=== PATIENT | male | born 1955 | race Caucasian/White ===

== ENCOUNTER → 2020-03-25 | Outpatient (CLI) | payer BC ==
[~2020-03-25] MED LIST: COVID-19 VACCINE (PFIZER)/PF 30 MCG/0.3 ML VIAL IM ONE; EPINEPHRINE INJ/PF 1 MG/1 ML AMPULE IM PRN
--- OUTSIDE RECORDS SUMMARY | 2020-03-28 10:32 | XMS REPORT ---
:1955 [facility] [address] [place] [address] Care Team Providers Name Role Phone PCP UNKNOWN, PATIENT Primary Care Physician Unavailable Valdemar Koch MD Attending Clinician Unavailable Ruth DIAZ Attending Clinician Unavailable Allergies, Adverse Reactions, Alerts Allergy Name Allergy Status Severity Reaction(s) Onset Inactive Treat ing Comments Type Date Date Clinician Acetaminophe Propensity Active Patient n to adverse 09-02 unsur e of reactions 00:00: reacti on 00 Tylenol TABS Tylenol Active Unrecalled TABS Reaction Medications Ordered Filled Start Stop Current Ordering Indication Dosage Frequency Signature Comments Components Medication Medication Date Date Medication? Clinician (SIG) Name Name Meloxicam Yes Peg Meloxicam 7.5 MG Oral -04 Meghan PA-C 7.5 MG Tablet 00:00: Oral 00 Tablet Take 1 tablet by mouth every day with food Quantity: 30 Refills: 5 Peg Christianson PA-C Start : 06-Mar-2020 Active Cyclobenzap Yes Peg Q0.3333D Cyclob leann rine HCl - 1- Meghan CRANE-C win HCl 10 MG Oral 00:00: - 10 MG Tablet 00 Oral Tablet TAKE 1/2 TO 1 TABLET 3 TIMES DAILY NEEDED. Quantity: 30 Refills: 2 Peg Christianson PA-C Start : 06-Mar-2020 Active predniSONE Yes Peg predniSONE 10 MG Oral -04 Meghan PA-C 10 MG Oral Tablet 00:00: Tablet 4 00 TABLETS DAILY FOR THREE DAYS, THEN 3 TABLETS DAILY FOR 3 DAYS, THEN 2 TABLETS DAILY FOR THREE DAYS, THEN 1 TABLET DAILY FOR THREE DAYS. Quantity: 30 Refills: 0 Peg Christianson PA-C Start : 06-Mar-2020 Active tadalafiL 2019-03 Yes benign 5mg Take 1 Take 1 (CIALIS) 5 2-14 prostatic tablet (5 t ablet (5 MG tablet 00:00: hyperplasia mg total) mg total) 00 with lower by mouth by jose th urinary daily. daily. tract sx Propafenone 2019-03 Yes Eloy Aldrich Propafenon HCl - 150 0-27 Zee DIAZ e HCl - MG Oral 12:47: 150 MG Tablet 13 Oral Tablet TAKE 1 TABLET BY MOUTH TWICE DAILY Quantity: 180 Refills: 1 Eloy Koch MD Start : 0Active tadalafiL 2019-03 2020- No benign 5mg Take 1 Take 1 (CIALIS) 5 0-12 12-14 prostatic tablet (5 t ablet (5 MG tablet 00:00: 00:00 hyperplasia mg total) mg total) 00 :00 with lower by mouth by jose th urinary daily. daily. tract sx Propafenone No Eloy Aldrich Propafenon HCl - 150 7- Zee DIAZ e HCl - MG Oral 16:27: 150 MG Tablet 43 Oral Tablet TAKE ONE TABLET BY MOUTH TWICE DAILY Quantity: 180 Refills: 0 Eloy Koch MD Start : 0Active Atenolol 25 Yes Eloy Aldrich Atenolol MG Oral - Zee DIAZ 25 MG Oral Tablet 16:27: Tablet 30 TAKE ONE TABLET BY MOUTH EVERY DAY Quantity: 90 Refills: 3 Eloy Koch MD Start : 0Active Triamcinolo Yes Eloy Aldrich Triamcinol ne 08-26 Zee DIAZ one Acetonide 00:00: Acetonide 0.5 % 00 0.5 % External External Cream Cream Apply to rash twice daily as directed (do not apply to face) Quantity: 1 Refills: 1 Eloy Koch MD Start : 0Active 15 GM Tube tadalafiL 0 2020- No benign 5mg Take 1 Take 1 (CIALIS) 5 5-13 10-12 prostatic tablet (5 t ablet (5 MG tablet 00:00: 00:00 hyperplasia mg total) mg total) 00 :00 with lower by mouth by jose th urinary daily. daily. tract sx Ondansetron Yes Alisia 1 Q8H Ondansetro 4 MG Oral 3-12 Loveless n 4 MG Tablet 00:00: PA Oral Disintegrat 00 Tablet ing Disintegra ting TAKE 1 TABLET Every 8 hours PRN nausea/ vomiting Quantity: 12 Refills: 0 Loveless Alisia CRANE Start : 0Active Cyanocobala No Eloy B 1 Cyanocobal min 1000 - Zee DIAZ brewer 1000 MCG/ML 00:00: MCG/ML Injection 00 Injection Solution Solution INJECT 1 ML INTRAMUSCU LARLY ONCE A MONTH Refills: 0 Eloy Koch MD Start : 0Admin Requested Cyanocobala 2018-03 No Eloy B 1 Cyanocobal min 1000 - Zee DIAZ brewer 1000 MCG/ML 00:00: MCG/ML Injection 00 Injection Solution Solution INJECT 1 ML INTRAMUSCU LARLY ONCE A MONTH Refills: 0 Eloy Koch MD Start : 9Admin Requested Propafenone No Eloy B Propafenon HCl - 150 09-29 Zee DIAZ e HCl - MG Oral 10:50: 150 MG Tablet 45 Oral Tablet TAKE ONE TABLET BY MOUTH TWICE DAILY Quantity: 180 Refills: 3 Eloy Koch MD B Start : 9Active Atenolol 25 No Eloy B Atenolol MG Oral 09-29 Zee DIAZ 25 MG Oral Tablet 10:50: Tablet 38 TAKE ONE TABLET BY MOUTH EVERY DAY Quantity: 90 Refills: 3 Eloy Koch MD B Start : 9Active aspirin Yes 81mg Take 81 mg Take 8 1 (ECOTRIN) 7-09 by mouth mg by 81 MG 14:16: daily. mouth tablet 43 daily. propafenone Yes 150mg Take 150 Take 150 (RYTHMOL) 7-09 mg by mg by 150 MG 14:16: mouth Two mouth Tw o tablet 43 (2) times (2) times a day. a day. atenolol Yes 25mg Take 25 mg Take 25 (TENORMIN) 7-09 by mouth mg by 25 MG 14:16: daily. mouth tablet 43 daily. multivit-ir Yes 1{tbl} Chew 1 Chew 1 on-min-foli 09-08 tablet tablet c acid 14:16: daily. daily. (MULTIVITAM 43 IN-IRON-MIN ERALS-FOLIC ACID) 3,500-18-0. 4 unit-mg-mg Chew tadalafil 2019- No benign 5mg Take 1 Take 1 (CIALIS) 5 09-08 05-13 prostatic tablet (5 t ablet (5 MG tablet 00:00: 00:00 hyperplasia mg total) mg total) 00 :00 with lower by mouth by jose th urinary daily. daily. tract sx tadalafil 2018- No benign 5mg Take 1 Take 1 (CIALIS) 5 09-08 prostatic tablet (5 t ablet (5 MG tablet 00:00: 00:00 hyperplasia mg total) mg total) 00 :00 with lower by mouth by jose urinary daily. daily. tract sx tadalafil 2018- No benign Take daily Reed e (CIALIS) 5 04-23 prostatic for bph melany ly for MG tablet 00:00: 00:00 hyperplasia bph 00 :00 with lower urinary tract sx tadalafil 2018- No enlarged Take daily T rc (CIALIS) 5 04-23 prostate for bph merissa y for MG tablet 00:00: 00:00 with bph 00 :00 urination problem multivit-ir Yes 1{tbl} Chew 1 Chew 1 on-min-foli 09-02 tablet tablet c acid 16:06: daily. daily. (MULTIVITAM 15 IN-IRON-MIN ERALS-FOLIC ACID) 3,500-18-0. 4 unit-mg-mg Chew tadalafil 2018- No benign 5mg Take 1 Take 1 (CIALIS) 5 09-02 07-09 prostatic tablet (5 t ablet (5 MG tablet 00:00: 00:00 hyperplasia mg total) mg total) 00 :00 with lower by mouth by jose th urinary daily. daily. tract sx Cialis 5 MG Yes Cialis 5 Oral Tablet 4-19 MG Oral 00:00: Tablet 00 Quantity: 90 Refills: 0 Start : 4Active Aspirin 81 2010- Yes Eloy B 1 QD Aspirin 81 MG TABS 8-24 Zee MD MG TABS 00:00: TAKE 1 00 TABLET DAILY WITH FOOD Quantity: 90 Refills: 3 Eloy Koch MD Start : 1Active Vitamins Yes Eloy Aldrich 1 QD Vitamins A-D-E/Selen 10-24 Zee Pascual-D-E/Pearl e ium Oral 00:00: nium Oral Tablet 00 Tablet TAKE 1 TABLET DAILY. 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 I refilled his Cialis prescrip t ion. Patient is doing really well. Se e the patient back in a year. He gets his PSAs wit h his primary. Erectile Erectile [id number] Inactiv 2017-09-[address] dysfunction dysfunction e 09-02 16:15:38 Assessmen 00:00: t & Plan : 00 Patient would like to go back to name brand once daily Cialis which I wrote for. He has no real active urologic issues. See him back in a year. He gets his PSAs wit h his primary Erectile Erectile [id number] Active 2017-09-[address] dysfunction dysfunction 09-02 16:15:38 Assessmen 00:00: t & Plan : 00 Patient would like to go back to name brand once daily Cialis which I wrote for. He has no real active urologic issues. See him back in a year. He gets his PSAs wit h his primary Erectile Erectile Condition Active 2017-09-[address] dysfunction dysfunction 09-02 16:15:38 Assessmen 00:00: t & Plan : 00 Patient is here for his annual checkup. The patient had his PSA recently that he was told was good . Apparent l y he brought a copy of a PSA. It' s currentl y not in the system. I wrote a prescrip t ion for Cialis 5 mg daily . See the patient back in a year. He he'll ge t his PSA with his primary. Obstructive Obstructive Condition Active 2017-09-02 uropathy uropathy 09-02 16:15:43 00:00: 00 Nocturia Nocturia Condition Active 2017-09-0209-02 16:15:46 00:00: 00 Influenza Influenza Problem Active vaccine vaccine administere administere d d History of History of Problem Resolve Benign Benign d colon polyp colon polyp Varicose Varicose Problem Active veins veins Fatigue Fatigue Problem Active High risk High risk Problem Active medication medication use use Pain in Pain in Problem Active joint of joint of right right shoulder shoulder Palpitation Palpitation Problem Active s s Umbilical Umbilical Problem Active hernia hernia Musculoskel Musculoskel Problem Active etal arm etal arm pain, right pain, right Chronic Chronic Problem Active pain of pain of left ankle left ankle Numbness Numbness Problem Active Arthralgia Arthralgia Problem Active of multiple of multiple sites sites Elevated Elevated Problem Active alkaline alkaline phosphatase phosphatase level level Elevated Elevated Problem Active AST (SGOT) AST (SGOT) Bilateral Bilateral Problem Active impacted impacted cerumen cerumen Pain in Pain in Problem Active both lower both lower extremities extremities Left leg Left leg Problem Active pain pain Intermitten Intermitten Problem Active t t claudicatio claudicatio n n Vitamin B12 Vitamin B12 Problem Active deficiency deficiency Flu-like Flu-like Problem Active symptoms symptoms Nausea with Nausea with Problem Active vomiting vomiting Right leg Right leg Problem Active pain pain Right Right Problem Active inguinal inguinal pain pain Impaired Impaired Problem Active glucose glucose regulation regulation Hyperlipopr Hyperlipopr Problem Active oteinemia oteinemia Paroxysmal Paroxysmal Problem Active atrial atrial fibrillatio fibrillatio n n Pernicious Pernicious Problem Active anemia anemia Obstructive Obstructive Problem Active sleep apnea sleep apnea Hypoglycemi Hypoglycemi Problem Active a a Fatty liver Fatty liver Problem Active disease, disease, nonalcoholi nonalcoholi c c Screening Screening Problem Active PSA PSA (prostate (prostate specific specific antigen) antigen) Low back Low back Problem Active pain with pain with left-sided left-sided sciatica sciatica Dermatitis Dermatitis Problem Active Left knee Left knee Problem Active pain pain Procedures Procedure Date / Time Performed Performing Clinician Devic e Lipid Panel 2020-03-03 00:00:00 TSH 2020-03-03 00:00:00 CMP(Complete Metabolic Panel) 2020-03-03 00:00:00 HGBA1C 2020-03-03 00:00:00 Urinalysis 2020-03-03 00:00:00 CBC 2020-03-03 00:00:00 OFFICE/OUTPATIENT VISIT, EST 2019-12-03 08:40:00 History of Appendectomy Results Test Description Test Time Test Comments Text Results Atomic Results Result Comments CBC 2020-03-10 09:21:00 Test Item Value Reference Range Comments White Blood Cell (test code = White Blood Cell) 7.4 K/uL 3.5-11.1 Red Blood Cell (test code = Red Blood Cell) 4.87 {M/uL} 4.27 -5.49 Hemoglobin (test code = Hemoglobin) 13.7 g/dL 12.9-16.1 Hematocrit (test code = Hematocrit) 42 % 38-47 Mean Corpuscular Volume (test code = Mean Corpuscular Volume) 86 .4 fL 79.0-95.0 Mean Corpuscular Hemoglobin (test code = Mean Corpuscular 28.1 p g/mL 27.0-33.0 Hemoglobin) Mean Corpuscular Hemoglobin Concentration (test code = Mean 32.5 g/dL 33.5-35.5 Corpuscular Hemoglobin Concentration) Red Cell Distribution Width (test code = Red Cell 13.1 % 12.0-15.0 Distribution Width) Platelet (test code = Platelet) 230 K/uL 130-353 Mean Platelet Volume (test code = Mean Platelet Volume) 9.9 fL 7.5-10.7 Neutrophil Count, absolute (test code = Neutrophil Count, 4.2 K/ uL 1.9-7.2 absolute) Neutrophil Count Percentage (test code = Neutrophil Count 57.6 % 43.0-72.0 Percentage) Lymphocyte Count, absolute (test code = Lymphocyte Count, 2.1 K/ uL 1.1-2.7 absolute) Lymphocyte Count Percentage (test code = Lymphocyte Count 28.2 % 17.0-44.0 Percentage) Monocyte Count, absolute (test code = Monocyte Count, 0.9 K/uL 0.3-0.8 absolute) Monocyte Count Percentage (test code = Monocyte Count 12.8 % 4.5-12.4 Percentage) Eosinophil Count, absolute (test code = Eosinophil Count, 0.1 K/ uL 0.0-0.5 absolute) Eosinophil Count Percentage (test code = Eosinophil Count 0.7 % 0.7-7.8 Percentage) Basophil Count, absolute (test code = Basophil Count, 0.0 K/uL 0.0-0.1 absolute) Basophil Count Percentage (test code = Basophil Count 0.4 % 0.2-1.1 Percentage) Nucleated Red Blood Cell, absolute (test code = Nucleated Re d 0.00 K/uL 0.00-0.00 Blood Cell, absolute) Nucleated Red Blood Cell, percentage (test code = Nucleated 0.00 % 0.00-0.00 Red Blood Cell, percentage) [id number] 09:21:00 Test Item Value Reference Range Comments Urine Color (test code = Urine Color) YELLOW Yellow Urine Clarity (test code = Urine Clarity) CLEAR Clear Urine Glucose (test code = Urine Glucose) NEGATIVE Negati ve Urine Ketones (test code = Urine Ketones) NEGATIVE Negati ve Urine Bilirubin (test code = Urine Bilirubin) NEGATIVE Ne gative Urine Specific [place] (test code = Urine Specific 1.020 1.010-1.030 [place]) Urine Blood (test code = Urine Blood) NEGATIVE Negative Urine pH (test code = Urine pH) 7.0 5.0-8.0 Urine Protein (test code = Urine Protein) NEGATIVE Negati ve Urine Urobilinogen (test code = Urine 0.2 Eu/dl 0.2 Urobilinogen) Urine Nitrites (test code = Urine Nitrites) NEGATIVE Nega tive Urine Leukocytes (test code = Urine Leukocytes) NEGATIVE Negative Hemoglobin [id number] 09:21:00 Test Item Value Reference Range Comments Hemoglobin A1C (test code = 4548-4) 5.6 % 4.3-6.2 Lipid [id number] 09:21:00 Test Item Value Reference Range Comments Chol/HDL Ratio (test code = 2089-1) 4.0 {ratio} 0.0-6.0 High Density Lipoprotein Cholesterol (test code 54 mg/dL 40-110 = High Density Lipoprotein Cholesterol) Low Density Lipoprotein, calculated (test code = 131 mg/dL 1-130 Low Density Lipoprotein, calculated) Thyroid Stimulating [id number] 09:21:00 Test Item Value Reference Range Comments Thyroid Stimulating Hormone (test code = 2.00 {mIU/mL} 0.46-4. 68 Thyroid Stimulating Hormone) CMP(Complete Metabolic Panel)2020-03-10 09:21:00 Test Item Value Reference Range Comments Glucose (test code = Glucose) 91 mg/dL 74-106 Sodium (test code = Sodium) 141 mmol/L 135-145 Potassium (test code = Potassium) 4.6 mmol/L 3.5-5.3 Chloride (test code = Chloride) 101 mmol/L 98-107 CO2 (test code = CO2) 32 mmol/L 22-30 Creatinine, serum (test code = Creatinine, serum) 0.80 mg/dL 0.10-1.25 Glomerular Filtration Rate (test code = >60 >60 Glomerular Filtration Rate) Glomerular Filtration Rate AA (test code = >60 >60 Glomerular Filtration Rate AA) Blood Urea Nitrogen (test code = Blood Urea 18 mg/dL 9-20 Nitrogen) Calcium (test code = Calcium) 9.8 mg/dL 8.4-10.5 Phosphorus (test code = Phosphorus) 4.1 mg/dL 2.5-4.5 Total Protein (test code = Total Protein) 7.6 g/dL 6.3-8. 2 Albumin (test code = 24481-8) 4.5 g/dL 3.5-5.0 Total Bilirubin (test code = Total Bilirubin) 0.4 mg/dL 0. 2-1.3 Bilirubin, unconj (test code = Bilirubin, unconj) 0.3 mg/dL 0.0-1.1 Bilirubin, Direct (test code = Bilirubin, Direct) 0.1 mg/dL 0.0-0.4 Alkaline Phosphatase (test code = Alkaline 56 U/L 20-15 0 Phosphatase) Alanine Transaminase (test code = Alanine 41 U/L 0-50 Transaminase) Aspartate Aminotransferase (test code = Aspartate 26 U/L 3-36 Aminotransferase) [id number] 10:40:00 Test Item Value Reference Range Comments White Blood Cell (test code = White Blood Cell) 3.8 K/uL 3.5-11.1 Red Blood Cell (test code = Red Blood Cell) 4.70 {M/uL} 4.27 -5.49 Hemoglobin (test code = Hemoglobin) 13.1 g/dL 12.9-16.1 Hematocrit (test code = Hematocrit) 40 % 38-47 Mean Corpuscular Volume (test code = Mean 85.7 fL 79.0-9 5.0 Corpuscular Volume) Mean Corpuscular Hemoglobin (test code = Mean 27.9 pg/mL 27 .0-33.0 Corpuscular Hemoglobin) Mean Corpuscular Hemoglobin Concentration (test 32.5 g/dL 33.5-35.5 code = Mean Corpuscular Hemoglobin Concentration) Red Cell Distribution Width (test code = Red 12.9 % 12. 0-15.0 Cell Distribution Width) Platelet (test code = Platelet) 174 K/uL 130-353 Mean Platelet Volume (test code = Mean Platelet 10.1 fL 7.5-10.7 Volume) Neutrophil Count, absolute (test code = 1.9 K/uL 1.9-7.2 Neutrophil Count, absolute) Neutrophil Count Percentage (test code = 49.6 % 43.0-72 .0 Neutrophil Count Percentage) Lymphocyte Count, absolute (test code = 1.3 K/uL 1.1-2.7 Lymphocyte Count, absolute) Lymphocyte Count Percentage (test code = 34.5 % 17.0-44 .0 Lymphocyte Count Percentage) Monocyte Count, absolute (test code = Monocyte 0.4 K/uL 0 .3-0.8 Count, absolute) Monocyte Count Percentage (test code = Monocyte 11.1 % 4.5-12.4 Count Percentage) Eosinophil Count, absolute (test code = 0.1 K/uL 0.0-0.5 Eosinophil Count, absolute) Eosinophil Count Percentage (test code = 3.4 % 0.7-7.8 Eosinophil Count Percentage) Basophil Count, absolute (test code = Basophil 0.0 K/uL 0 .0-0.1 Count, absolute) Basophil Count Percentage (test code = Basophil 1.1 % 0.2-1.1 Count Percentage) Nucleated Red Blood Cell, absolute (test code = 0.00 K/uL 0.00-0.00 Nucleated Red Blood Cell, absolute) Nucleated Red Blood Cell, percentage (test code 0.00 % 0.00-0.00 = Nucleated Red Blood Cell, percentage) [id number] 10:40:00 Test Item Value Reference Range Comments Urine Color (test code = Urine Color) LT. YELLOW Yellow Urine Clarity (test code = Urine Clarity) CLEAR Clear Urine Glucose (test code = Urine Glucose) NEGATIVE Negati ve Urine Ketones (test code = Urine Ketones) NEGATIVE Negati ve Urine Bilirubin (test code = Urine Bilirubin) NEGATIVE Ne gative Urine Specific [place] (test code = Urine 1.010 1.010- 1.030 Specific [place]) Urine Blood (test code = Urine Blood) NEGATIVE Negative Urine pH (test code = Urine pH) 8.0 5.0-8.0 Urine Protein (test code = Urine Protein) NEGATIVE Negati ve Urine Urobilinogen (test code = Urine 0.2 Eu/dl 0.2 Urobilinogen) Urine Nitrites (test code = Urine Nitrites) NEGATIVE Nega tive Urine Leukocytes (test code = Urine Leukocytes) NEGATIVE Negative Hemoglobin [id number] 10:40:00 Test Item Value Reference Range Comments Hemoglobin A1C (test code = 4548-4) 5.6 % 4.3-6.2 Lipid [id number] 10:40:00 Test Item Value Reference Range Comments Chol/HDL Ratio (test code = 2089-1) 4.5 {ratio} 0.0-6.0 High Density Lipoprotein Cholesterol (test code 42 mg/dL 40-110 = High Density Lipoprotein Cholesterol) Low Density Lipoprotein, calculated (test code = 126 mg/dL 1-130 Low Density Lipoprotein, calculated) CMP(Complete Metabolic Panel)2019-08-27 10:40:00 Test Item Value Reference Range Comments Glucose (test code = Glucose) 108 mg/dL 74-106 Sodium (test code = Sodium) 138 mmol/L 135-145 Potassium (test code = Potassium) 4.5 mmol/L 3.5-5.3 Chloride (test code = Chloride) 102 mmol/L 98-107 CO2 (test code = CO2) 28 mmol/L 22-30 Creatinine, serum (test code = Creatinine, serum) 0.70 mg/dL 0.10-1.25 Glomerular Filtration Rate (test code = >60 >60 Glomerular Filtration Rate) Glomerular Filtration Rate AA (test code = >60 >60 Glomerular Filtration Rate AA) Blood Urea Nitrogen (test code = Blood Urea 14 mg/dL 9-20 Nitrogen) Calcium (test code = Calcium) 9.5 mg/dL 8.4-10.5 Phosphorus (test code = Phosphorus) 3.8 mg/dL 2.5-4.5 Total Protein (test code = Total Protein) 7.1 g/dL 6.3-8. 2 Albumin (test code = 71728-7) 4.2 g/dL 3.5-5.0 Total Bilirubin (test code = Total Bilirubin) 0.3 mg/dL 0. 2-1.3 Bilirubin, unconj (test code = Bilirubin, unconj) 0.2 mg/dL 0.0-1.1 Bilirubin, Direct (test code = Bilirubin, Direct) 0.1 mg/dL 0.0-0.4 Alkaline Phosphatase (test code = Alkaline 51 U/L 20-15 0 Phosphatase) Alanine Transaminase (test code = Alanine 35 U/L 6-52 Transaminase) Aspartate Aminotransferase (test code = Aspartate 35 U/L 3-36 Aminotransferase) PSA-Medicare [id number] 10:40:00 Test Item Value Reference Range Comments PSA-Medicare Screening (test code = PSA-Medicare 0.885 ng/mL 0.000-4.000 Screening) Thyroid Stimulating [id number] 10:40:00 Test Item Value Reference Range Comments Thyroid Stimulating Hormone (test code = 2.49 {mIU/mL} 0.46-4. 68 Thyroid Stimulating Hormone) Assessments Condition Name Status Diagnosis Date Treating Clinici an Posterior tibial tendinitis, right leg Active Posterior tibial tendinitis, left leg Active Pain in right ankle and joints of right foot Active Flat foot [pes planus] (acquired), Active unspecified foot Vitamin B12 deficiency Active Right leg pain Active Left leg pain Active Nausea with vomiting Active Nausea with vomiting Active Right leg pain Active Dermatitis Active Hyperlipoproteinemia Active Right inguinal pain Active Paroxysmal atrial fibrillation Active Right-sided low back pain with right-sided Active sciatica Hyperlipoproteinemia Active Fatty liver disease, nonalcoholic Active Obstructive sleep apnea Active Pernicious anemia Active Dermatitis Active Hypoglycemia Active Screening PSA (prostate specific antigen) Active Left knee pain Active Paroxysmal atrial fibrillation Active Right-sided low back pain with right-sided Active sciatica Influenza vaccine administered Active Hyperlipoproteinemia Active Fatty liver disease, nonalcoholic Active Obstructive sleep apnea Active Pernicious anemia Active Hypoglycemia Active Paroxysmal atrial fibrillation Active Arthralgia of multiple sites Active Impaired glucose regulation Active Low back pain with left-sided sciatica Active Hyperlipoproteinemia Active Fatty liver disease, nonalcoholic Active Dermatitis Active Hypoglycemia Active Screening PSA (prostate specific antigen) Active Vitamin B12 deficiency Active Paroxysmal atrial fibrillation Active Bilateral impacted cerumen Active Bilateral impacted cerumen Active Hyperlipoproteinemia Active Fatty liver disease, nonalcoholic Active Hypoglycemia Active Vitamin B12 deficiency Active Paroxysmal atrial fibrillation Active Pain in both lower extremities Active Intermittent claudication Active Hyperlipoproteinemia Active Encounter for preventive health examination Active Hyperlipoproteinemia Active Fatty liver disease, nonalcoholic Active Hypoglycemia Active Vitamin B12 deficiency Active Paroxysmal atrial fibrillation Active Encounters Start End Encounter Admission Attending Care Care Encounter Date/Time Date/Time Type Type Clinicians Facility Department ID 2020-11-17 2020-11-17 [id number] 00:00:00 00:00:00 [id number] 2020-03-21 2020-03-21 Appointment; RAFAAPOORVA CRAIGAPOORVA [id number] 16:25:00 16:47:27 [facility] 2020-03-10 2020-03-10 Appointment; SOHAM KochAPOORVA [id number] 08:30:00 08:30:00 Eloy Koch MD 2020-03-06 2020-03-06 Appointment; [facility] CRAIG[facility] [id number] 11:00:00 11:00:00 Peg Christianson PA-C 2020-02-21 2020-02-21 [facility] [id number] 16:50:00 16:50:00 [facility] 2020-02-14 2020-02-14 [facility] [id number] 00:00:00 00:00:00 2020-01-19 2020-01-19 [facility] [id number] 16:45:00 16:45:00 [facility] 2019-12-23 2019-12-23 [facility] [id number] 00:00:00 00:00:00 2019-12-22 2019-12-22 [facility] [id number] 00:00:00 00:00:00 2019-12-21 2019-12-21 [facility] [id number] 00:00:00 00:00:00 2019-12-20 2019-12-20 [facility] [id number] 16:40:00 16:40:00 [facility] 2019-12-13 2019-12-13 [facility] [id number] 00:00:00 00:00:00 2019-12-10 2019-12-10 Appointment; [facility] [id number] 16:15:00 16:15:00 [facility] 2019-12-03 2019-12-03 [facility]patient [facility] [id number] 08:40:00 08:40:00 Amarjit DIAZ Orthopedics [id number] 6-ACC \T\ Sports [id number] [facility] F74 2019-11-29 2019-11-29 [facility] [id number] 00:00:00 00:00:00 2019-11-23 2019-11-23 [facility] [id number] 00:00:00 00:00:00 2019-11-19 2019-11-19 [facility] [id number] 10:20:50 11:00:13 [id number] 2019-11-19 2019-11-19 [facility] [id number] 10:20:50 11:00:13 2019-11-19 2019-11-19 Outpatient [facility] [id number] 00:00:00 00:00:00 [id number] 2019-11-16 2019-11-16 Appointment; [facility] [id number] 16:40:00 16:40:00 [facility] 2019-11-12 2019-11-12 Outpatient [facility] [id number] 00:00:00 00:00:00 [id number] 2019-11-05 2019-11-05 Outpatient [facility] [id number] 00:00:00 00:00:00 [id number] 2019-10-22 2019-10-22 Outpatient [facility] [id number] 00:00:00 23:59:00 [id number] 2019-10-14 2019-10-14 Appointment; [facility] [id number] 16:15:00 16:15:00 [facility] 2019-09-17 2019-09-17 Appointment; [facility] [id number] 16:00:00 16:00:00 [facility] 2019-09-09 2019-09-09 Outpatient [facility] [id number] 08:50:35 09:10:06 2019-09-09 2019-09-09 Outpatient [facility] [id number] 08:50:35 09:10:06 [id number] 2019-09-09 2019-09-09 Outpatient [facility] [id number] 00:00:00 00:00:00 [id number] 2019-08-27 2019-08-27 Appointment; SOHAM Koch [facility] [id number] 09:30:00 09:30:00 Eloy Koch MD 2019-08-12 2019-08-12 Appointment; [facility] [id number] 16:50:00 16:50:00 [facility] 2019-07-14 2019-07-14 Outpatient [facility] [id number] 00:00:00 00:00:00 2019-07-12 2019-07-12 Appointment; [facility] [id number] 16:30:00 16:30:00 [facility] 2019-06-18 2019-06-18 Appointment; [facility] [id number] 11:15:00 11:15:00 ANGIE Roblero 2019-06-18 2019-06-18 Appointment; SOHAM Koch [facility] [id number] 11:00:00 11:00:00 Eloy Koch MD 2019-06-14 2019-06-14 Appointment; [facility] [id number] 16:30:00 16:30:00 [facility] 2019-05-17 2019-05-17 Appointment; [facility] [id number] 16:15:00 16:15:00 [facility] 2019-05-14 2019-05-14 Appointment; [facility] [id number] 10:00:00 10:00:00 Alisia Smith PA 2019-05-13 2019-05-13 Appointment; [facility] [id number] 15:30:00 15:30:00 Alisia Smith PA 2019-04-23 2019-04-23 Appointment; [facility] [id number] 11:00:00 11:00:00 Pollsaqib e Echo/Vas U/SSahra MD 2019-04-15 2019-04-15 [facility] [id number] 09:15:00 09:15:00 Eloy Koch MD 2019-04-06 2019-04-06 Appointment; [facility] [id number] 16:20:00 16:20:00 [facility] 2019-03-08 2019-03-08 Appointment; [facility] [id number] 16:45:00 16:45:00 [facility] 2019-02-19 2019-02-19 Appointment; SOHAM Koch [facility] [id number] 09:45:00 09:45:00 Eloy Koch MD 2019-02-03 2019-02-03 Appointment; [facility] [id number] 16:25:00 16:25:00 [facility] 2019-01-18 2019-01-18 Appointment; [facility] [id number] 16:15:00 16:15:00 [facility] 2019-01-06 2019-01-06 Appointment; [facility] [id number] 16:30:00 16:30:00 [facility] 2018-12-02 2018-12-02 Appointment; [facility] [id number] 16:20:00 16:20:00 [facility] 2018-11-25 2018-11-25 Appointment; [facility] [id number] 15:30:00 15:30:00 Peg Christianson PA-C 2018-11-20 2018-11-20 Appointment; [facility] [id number] 15:30:00 15:30:00 Peg Christianson PA-C 2018-11-04 2018-11-04 Appointment; [facility] [id number] 14:05:00 14:05:00 [facility] 2018-10-05 2018-10-05 Appointment; [facility] [id number] 15:30:00 15:30:00 [facility] 2018-09-08 2018-09-08 [facility] [id number] 14:09:56 14:35:55 [id number] 2018-09-08 2018-09-08 Outpatient [facility] [id number] 14:09:56 14:35:55 2018-09-08 2018-09-08 [facility] [id number] 00:00:00 00:00:00 [id number] 2018-09-07 2018-09-07 Appointment; [facility] [id number] 16:25:00 16:25:00 [facility] 2018-08-21 2018-08-21 Appointment; [facility] [id number] 09:00:00 09:00:00 Eloy Koch MD 2018-08-03 2018-08-03 Appointment; [facility] [id number] 16:45:00 16:45:00 [facility] 2018-07-01 2018-07-01 Appointment; [facility] [id number] 16:10:00 16:10:00 [facility] 2018-06-01 2018-06-01 Appointment; [facility] [id number] 16:15:00 16:15:00 [facility] 2018-05-01 2018-05-01 Appointment; [facility] [id number] 15:25:00 15:25:00 [facility] 2018-04-23 2018-04-23 Outpatient [facility] [id number] 00:00:00 00:00:00 2018-04-03 2018-04-03 Appointment; [facility] [id number] 14:00:00 14:00:00 [facility] 2018-03-04 2018-03-04 Appointment; [facility] [id number] 16:05:00 16:05:00 [facility] 2018-02-13 2018-02-13 Appointment; SOHAM KochAPOORVA [id number] 08:30:00 08:30:00 Eloy Koch MD 2018-02-02 2018-02-02 Appointment; [facility] [id number] 15:25:00 15:25:00 [facility] 2017-12-31 2017-12-31 Appointment; [facility] [id number] 16:00:00 16:00:00 [facility] 2017-11-25 2017-11-25 Appointment; [facility] [id number] 16:20:00 16:20:00 [facility] 2017-10-27 2017-10-27 Appointment; [facility] [id number] 16:25:00 16:25:00 [facility] 2017-09-26 2017-09-26 Appointment; [facility] [id number] 16:05:00 16:05:00 [facility] 2017-09-02 2017-09-02 Outpatient [facility] [id number] 15:41:27 16:26:18 [id number] 2017-09-02 2017-09-02 Outpatient [facility] [id number] 00:00:00 00:00:00 [id number] 2017-08-26 2017-08-26 Outpatient [facility] [id number] 00:00:00 00:00:00 [id number] 2017-08-15 2017-08-15 Outpatient [facility] [id number] 00:00:00 00:00:00 [id number] Family History Family Member Diagnosis Comments Start Date Stop Date Mother Family history of Breast cancer Father Family history of heart disease Father Family history of emphysema Father Family history of Breast cancer Immunizations Ordered Immunization Filled Immunization Date Status Commen ts Refusal Reason Name Name Flulaval Quadrivalent 2019-12-10 Completed 0.5 ML Intramuscular 17:36:00 Suspension Prefilled Syringe Shingrix 50 MCG 2019-02-12 Completed Intramuscular 00:00:00 Suspension Reconstituted Fluzone Quadrivalent 2019-01-18 Completed 0.5 ML Intramuscular 16:29:00 Suspension Prefilled Syringe Shingrix 50 MCG 2018-08-21 Completed Intramuscular 00:00:00 Suspension Reconstituted Fluarix Quadrivalent 2018-02-02 Completed 0.5 ML Intramuscular 15:36:00 Suspension Prefilled Syringe Pneumococcal 2017-02-07 Completed polysaccharide 00:00:00 vaccine, 23 valent Influenza 2016-02-02 Completed 00:00:00 Zoster (Zostavax) 2015-01-19 Completed 15:35:00 Prevnar 13 2014-08-02 Completed Intramuscular 00:00:00 Suspension Influenza 2013-12-01 Completed 00:00:00 Fluzone INJ 2012-12-25 Completed 00:00:00 Fluzone INJ 2011-12-26 Completed 00:00:00 Influenza 2010-12-27 Completed 00:00:00 Payers Payer Name Policy Type Policy Number Effective Date Expiration D ate MEDICARE PART A AND [id number] 2018 00:00:00 PART B [employer] [id number] 2010 00:00:0 0 Plan of Treatment Planned Activity Planned Date Details Comments Future Scheduled Test [code = ] Future Scheduled Test [code = ] Future Scheduled Test [code = ] Future Scheduled Test [code = ] Future Scheduled Test [code = ] Future Scheduled Test [code = ] Future Scheduled Test [code = ] Future Scheduled Test [code = ] Future Scheduled Test [code = ] Future Scheduled Test [code = ] Social History Social Habit Start Date Stop Date Comments Tobacco smoking status NHIS 2019-11-19 00:00:00 2019-11-19 00:00 :00 Alcohol intake 2019-11-19 00:00:00 2019-11-19 00:00:00 Tobacco use and exposure 2019-11-19 00:00:00 2019-11-19 00:00:00 Smoking Status Start Date Stop Date Never smoked tobacco (finding) Vital Signs Vital Name Observation Time Observation Value Comments Systolic blood pressure 2020-03-10 08:45:00 122 mm[Hg] Diastolic blood pressure 2020-03-10 08:45:00 68 mm[Hg] Weight 2020-03-10 08:45:00 230.4 [lb_av] Body mass index (BMI) [Ratio] 2020-03-10 08:45:00 34.02 kg/m2 Body temperature 2020-03-10 08:45:00 97.3 [degF] Heart Rate 2020-03-10 08:45:00 58 /min Systolic blood pressure 2020-03-06 11:11:00 122 mm[Hg] Diastolic blood pressure 2020-03-06 11:11:00 70 mm[Hg] Weight 2020-03-06 11:11:00 231 [lb_av] Body mass index (BMI) [Ratio] 2020-03-06 11:11:00 34.11 kg/m2 Body temperature 2020-03-06 11:11:00 97.5 [degF] Heart Rate 2020-03-06 11:11:00 58 /min Respiratory rate 2020-03-06 11:11:00 16 /min O2 SAT 2020-03-06 11:11:00 99 % Source: RA Heart rate 2019-11-19 10:36:00 61 /min Body temperature 2019-11-19 10:36:00 36.39 Denisha Respiratory rate 2019-11-19 10:36:00 16 /min Body height 2019-11-19 10:36:00 182.9 cm Body weight 2019-11-19 10:36:00 103.874 kg Heart rate 2019-09-09 08:54:00 67 /min Body temperature 2019-09-09 08:54:00 36.61 Denisha Body weight 2019-09-09 08:54:00 104.599 kg Systolic blood pressure 2019-08-27 09:51:00 118 mm[Hg] Diastolic blood pressure 2019-08-27 09:51:00 64 mm[Hg] Weight 2019-08-27 09:51:00 225.6 [lb_av] Body mass index (BMI) [Ratio] 2019-08-27 09:51:00 33.32 kg/m2 Body temperature 2019-08-27 09:51:00 97.3 [degF] Heart Rate 2019-08-27 09:51:00 52 /min Diastolic blood pressure 2018-09-08 14:15:00 70 mm[Hg] Body temperature 2018-09-08 14:15:00 36.28 Denisha Body height 2018-09-08 14:15:00 182.9 cm Body weight 2018-09-08 14:15:00 100.699 kg Systolic blood pressure 2018-09-08 14:15:00 130 mm[Hg] Hospital Discharge Instructions NameDatesDetailsInstructions not documentedNameDatesDetailsInstructions not documentedNameDatesDetailsInstructions not documented NameDatesDetailsInstructions not documentedNameDatesDetailsInstructions not documentedNameDatesDetailsInstructions not documented NameDatesDetailsInstructions not documentedNameDatesDetailsInstructions not documentedNameDatesDetailsInstructions not documented NameDatesDetailsInstructions not documented
== END ==
LOC: EMPHEALTH 16:36
PROVIDERS: ATTEND Internal Medicine
DX: Z23 Encounter for immunization (principal)
CPT/HCPCS: 91300